=== PATIENT | female | born 1970 | race Two or more races ===

== ENCOUNTER 2021-02-04 07:22 | Day surgery (SDC) | payer OTHER | END 2021-02-04 17:40 | disposition home or self-care (01) | LOC: CIR.AMB 07:22 | PROVIDERS: ATTEND Orthopaedic Surgery Sports Medicine | DX: S82.852A Displaced trimalleolar fracture of left lower leg, initial encounter for closed fracture (principal); Z20.822 Contact with and (suspected) exposure to COVID-19 | CPT/HCPCS: 27822; C1776 ==